=== PATIENT | female | born 1965 | race Caucasian/White ===

== ENCOUNTER 2018-02-23 10:26 | Outpatient (CLI) | payer BC | END 2018-02-23 10:27 | disposition home or self-care (01) | LOC: BICMAMMO 10:26 | PROVIDERS: ATTEND Internal Medicine | DX: M81.0 Age-related osteoporosis without current pathological fracture; Z12.31 Encounter for screening mammogram for malignant neoplasm of breast | CPT/HCPCS: 77063; 77067; 77080 ==

== ENCOUNTER 2018-04-28 16:18 | Emergency (ER) | payer BC | END 2018-04-28 18:35 | disposition home or self-care (01) | LOC: ERS 16:18 | DX: S16.1XXA Strain of muscle, fascia and tendon at neck level, initial encounter (principal); D64.9 Anemia, unspecified; G43.909 Migraine, unspecified, not intractable, without status migrainosus; V43.53XA Car driver injured in collision with pick-up truck in traffic accident, initial encounter | CPT/HCPCS: 99283 ==

== ENCOUNTER 2019-05-30 09:41 | Outpatient (CLI) | payer BC ==
--- NOTE | 2019-05-30 10:52 | MMO ---
Bilateral MAMMO Bilat Screen [facility]. CLINICAL HISTORY: Patient is 53 years old and is seen for screening. The patient has no family history of breast cancer. The patient has no personal history of cancer. VIEWS: The views performed were: bilateral craniocaudal with tomosynthesis and bilateral mediolateral oblique with tomosynthesis. FILMS COMPARED: The present examination has been compared to prior imaging studies performed at [facility] on 12/04/2014, 01/21/2016, 02/17/2017 and 02/23/2018. MAMMOGRAM FINDINGS: The breasts are heterogeneously dense, which could obscure a lesion on mammography. Finding 1: There is a stable intramammary lymph node seen in the right breast. Finding 2: There are stable benign appearing calcifications seen in both breasts. There are no suspicious masses, suspicious calcifications, or new areas of architectural distortion. IMPRESSION: THERE IS NO MAMMOGRAPHIC EVIDENCE OF MALIGNANCY. A ROUTINE FOLLOW-UP MAMMOGRAM IN 1 YEAR IS RECOMMENDED. THE RESULTS OF THIS EXAM WERE SENT TO THE PATIENT. ACR BI-RADS Category 2 - Benign finding MAMMOGRAPHY NOTE: 1. A negative mammogram report should not delay a biopsy if a dominant of clinically suspicious mass is present. 2. Approximately 10% to 15% of breast cancers are not detected by mammography. 3. Adenosis and dense breasts may obscure an underlying neoplasm.
== END 2019-05-30 09:42 | disposition home or self-care (01) ==
LOC: BICMAMMO 09:41
PROVIDERS: ATTEND Internal Medicine
DX: Z12.31 Encounter for screening mammogram for malignant neoplasm of breast (principal)
CPT/HCPCS: 77063; 77067

== ENCOUNTER 2019-05-30 10:45 | Emergency (ER) | payer BC ==
[2019-05-30] MEDS ORDERED: Bacitracin 1 PK ONE (11:18)
== END 2019-05-30 11:40 | disposition home or self-care (01) ==
LOC: ERS 10:45
DX: I87.2 Venous insufficiency (chronic) (peripheral) (principal); E78.5 Hyperlipidemia, unspecified; D64.9 Anemia, unspecified; G43.909 Migraine, unspecified, not intractable, without status migrainosus
CPT/HCPCS: 99281

== ENCOUNTER 2019-11-04 17:01 | Emergency (ER) | payer BC, OTHER ==
--- NOTE | 2019-11-04 18:10 | RAD ---
EXAM: CHEST TWO VIEWS: 11/04/19 HISTORY: Cough with fever. Congestion, sore throat. COMPARISON: 11/18/15. FINDINGS: Heart size is within normal limits. The lungs are clear. No confluent pneumonia, overt edema or pleur al effusion. IMPRESSION: No significant acute intrathoracic disease. No evidence for pneumonia. POS: [facility]
== END 2019-11-04 18:30 | disposition home or self-care (01) ==
LOC: ERS 17:01
DX: J06.9 Acute upper respiratory infection, unspecified (principal); E78.5 Hyperlipidemia, unspecified; E78.00 Pure hypercholesterolemia, unspecified
CPT/HCPCS: 71046

== ENCOUNTER 2020-05-10 22:58 | Emergency (ER) | payer BC, OTHER | END 2020-05-10 23:51 | disposition home or self-care (01) | LOC: ERS 22:58 | DX: S90.811A Abrasion, right foot, initial encounter (principal); I10 Essential (primary) hypertension; E78.5 Hyperlipidemia, unspecified; G43.909 Migraine, unspecified, not intractable, without status migrainosus; X58.XXXA Exposure to other specified factors, initial encounter | CPT/HCPCS: 99282 ==

== ENCOUNTER 2022-05-17 22:14 | Emergency (ER) | payer BC, SELFPAY ==
[2022-05-18] MEDS ORDERED: HYDROcodone/Acetaminophen 5/325 mg Tablet ONE (00:24)
== END 2022-05-18 01:10 | disposition home or self-care (01) ==
LOC: ERS 22:14
DX: S82.145A Nondisplaced bicondylar fracture of left tibia, initial encounter for closed fracture (principal); I10 Essential (primary) hypertension; W19.XXXA Unspecified fall, initial encounter

== ENCOUNTER 2024-01-10 18:34 | Emergency (ER) | payer BC | END 2024-01-10 21:15 | disposition home or self-care (01) | LOC: ERS 18:34 | DX: L30.9 Dermatitis, unspecified (principal); L29.9 Pruritus, unspecified | CPT/HCPCS: 99282 ==